=== PATIENT | male | born 1955 | race Caucasian/White ===

== ENCOUNTER → 2022-12-10 | Outpatient (CLI) | payer OTHER ==
--- NOTE | 2022-12-10 15:47 | CTL ---
EXAMINATION TYPE: CT Low Dose Lung DATE OF EXAM ORDERED: 12/10/2022 HISTORY: . Lung cancer screening CT DLP: 167.[address] CTDI: 4.3 mGy Automated exposure control for dose reduction was used. SCREENING VISIT: COMPARISON: TECHNIQUE: Low dose computed tomography scan was performed through the chest at 1 mm thick sections a nd reconstructed images in multiple planes at 1 mm and [address] DIAGNOSTIC QUALITY: Satisfactory FINDINGS: Postsurgical change involving the left shoulder. Hypertrophic and degenerative changes of the spine. Remote rib fractures on the right are noted. There is dense coronary artery calcification. Atherosclerotic changes aorta which is of normal size. There is trace of pericardial fluid. No evidence of thoracic aortic aneurysm. No pathologic adenopathy by noncontrast technique. The lungs are clear there is no pleural effusion or pneumothorax. No focal pneumonia. Mild central lo bular emphysematous changes seen. No sizable pulmonary nodules. IMPRESSION: 1. Mild COPD with no sizable pulmonary nodules. 2. Dense coronary artery calcification correlate clinically. CT LUNG RAD AND CT CHEST RECOMMENDATION: Lung-Rad 1 Negative: Continue annual screening with LDCT in 12 months. =
== END | disposition home or self-care (01) ==
LOC: RADCTMAIN 14:40
DX: Z12.2 Encounter for screening for malignant neoplasm of respiratory organs (principal); J44.9 Chronic obstructive pulmonary disease, unspecified; I25.10 Atherosclerotic heart disease of native coronary artery without angina pectoris; F17.210 Nicotine dependence, cigarettes, uncomplicated
CPT/HCPCS: 71271

== ENCOUNTER → 2023-12-14 | Outpatient (CLI) | payer OTHER ==
--- NOTE | 2023-12-14 13:35 | CTL ---
EXAMINATION TYPE: CT Low Dose Lung DATE OF EXAM: 12/14/2023 1:19 PM CLINICAL INDICATION:Male, 68 years old with history of F17.210 nicotine dependence; Hx nicotine deplinda mccauley, current smoker, 1.5 packs per day x 18 years, c/o cough , history of tobacco use. COMPARISON: 12/10/2022 TECHNIQUE: Multiple axial non-contrast scans were obtained from approximately the lung apices through the upper abdomen. Coronal and sagittal reformatted images were obtained. Low dose technique was uti lized. CT DLP: 105 mGycm, Automated exposure control for dose reduction was used. CT Contrast: Contrast used: None Oral contrast used: None FINDINGS: ======== Lack of intravenous contrast and low dose technique limits the evaluation of the vascular and soft ti ssue structures. LUNGS: No evidence of pulmonary fibrosis. No evidence of focal consolidation, pneumothorax or pleural effusion. Mild centrilobular emphysema changes throughout the lungs Nodules: RUL: None. RML: None. RLL: None. VLAD: None. LLL: None. AIRWAY: Patent and unremarkable. HEART: Size within normal limits. Moderate coronary artery atherosclerosis. MEDIASTINUM: No gross evidence of adenopathy. VASCULATURE: No aortic aneurysm. MUSCULOSKELETAL: Mild disc degeneration changes are present throughout the thoracolumbar spine., left shoulder arthroplasty with hardware intact. Subacute chronic right-sided rib fractures with callus f ormation noted. SOFT TISSUES/LYMPH NODES: Unremarkable. LOWER NECK: No significant findings. UPPER ABDOMEN: No significant findings. IMPRESSION: 1. No pulmonary nodules. 2. Mild emphysema. CT LUNG RAD AND CT CHEST RECOMMENDATION: Lung-Rad 1 Negative: Continue annual screening with LDCT in 12 months. S Modifier (other clinically significant findings): None Recommend smoking cessation (if current smoker), or continuation of smoking cessation (if prior smoke r). Annual screening for lung cancer with low-dose computed tomography is recommended in adults ages 55 to 77 years who have a 30 pack-year smoking history and currently smoke or have quit within the pa st 15 years. Screening should be discontinued once a person has not smoked for 15 years or develops a health problem that substantially limits life expectancy or the ability or willingness to have curat papi lung surgery. Lung rads 2021 [email or web address]
== END | disposition home or self-care (01) ==
LOC: RADCTMAIN 12:47
DX: Z12.2 Encounter for screening for malignant neoplasm of respiratory organs (principal); J43.2 Centrilobular emphysema; Z87.891 Personal history of nicotine dependence
CPT/HCPCS: 71271

== ENCOUNTER 2024-01-13 15:58 | Emergency (ER) | payer OTHER ==
[2024-01-13 16:32] VITALS: RESP 18
--- NOTE | 2024-01-13 16:40 | ED ---
General Adult HPI - General Chief complaint: Wound/Laceration Stated complaint: Foreign Object stuck in L hand Time Seen by Provider: 01/13/24 16:07 Source: patient, RN notes reviewed Mode of arrival: ambulatory Limitations: no limitations - History of Present Illness Initial comments: 68-year-old male presents to the emergency department for evaluation of fishhook in the left middle finger. Patient states that this morning he was fishing when a fishhook got stuck in his finger. He states that he attempted to get it out but was unsuccessful. He states that there is a small portion of the hook that is still within his finger. He is unsure of his last tetanus vaccination date. - Related Data Home Medications Medication Instructions Recorded Confirmed Aspirin EC [Ecotrin] 325 mg PO DAILY 07/17/14 07/18/14 HYDROcodone/APAP 10-325MG [[place] 1 each PO Q8HR PRN 07/17/14 07/18/14 10-325] Multivitamins, Thera [Multivitamin 1 each PO DAILY 07/17/14 07/18/14 (formulary)] traMADol HCl [Ultram] 50 mg PO Q6H PRN 07/17/14 07/18/14 Previous Rx's Medication Instructions Recorded Atorvastatin [Lipitor] 40 mg PO DAILY #90 tab 07/19/14 Metoprolol Tartrate [Lopressor] 25 mg PO BID #180 tab 07/19/14 Nicotine 21Mg/24Hr Patch [Habitrol] 1 patch TRANSDERM DAILY #14 patch 07/19/14 Nitroglycerin Sl Tabs [Nitrostat] 0.4 mg SUBLINGUAL Q5M PRN #25 tab 07/19/14 Cephalexin [Keflex] 500 mg PO Q6HR #28 cap 01/13/24 Allergies Allergy/AdvReac Type Severity Reaction Status Date / Time No Known Allergies Allergy Verified 01/13/24 16:04 Review of Systems ROS Statement: Those systems with pertinent positive or pertinent negative responses have been documented in the HPI. ROS Other: All systems not noted in ROS Statement are negative. Past Medical History Past Medical History: Cancer, Chest Pain / Angina, Hyperlipidemia Additional Past Medical History / Comment(s): HX OF PROSTATE CANCER (TX WITH RADIATION SEED IMPLANTS), BACK PAIN, LEFT SHOULDER PAIN AND HEEL PAIN. RECENT CHEST DISCOMFORT. History of Any Multi-Drug Resistant Organisms: None Reported Past Surgical History: Joint Replacement, Orthopedic Surgery Additional Past Surgical History / Comment(s): RT SHOULDER ROTATOR CUFF, RT KNEE REPLACEMENT Past Anesthesia/Blood Transfusion Reactions: No Reported Reaction, Family History of Problems w/ Anesthesia Additional Past Anesthesia/Blood Transfusion Reaction / Comment(s): SISTER (Mirna)-HIVWILLIAM Past Psychological History: No Psychological Hx Reported Past Alcohol Use History: None Reported Past Drug Use History: Marijuana - Past Family History Father Family Medical History: Cancer, Coronary Artery Disease (CAD) Additional Family Medical History / Comment(s): prostate and COLON CANCER, triple CABG, General Exam Limitations: no limitations General appearance: alert, in no apparent distress Head exam: Present: atraumatic, normocephalic, normal inspection Extremities exam: Present: normal inspection, full ROM, normal capillary refill. Absent: tenderness, pedal edema, joint swelling, calf tenderness Neurological exam: Present: alert, oriented X3 Psychiatric exam: Present: normal affect, normal mood Skin exam: Present: warm, dry, normal color, other (Visible foreign body to the distal left middle finger). Absent: intact Course Vital Signs 01/13/24 16:03 Temperature 97.8 F Pulse Rate 103 H Respiratory 18 Rate Blood Pressure 142/87 O2 Sat by Pulse 96 Oximetry Procedures - Forgein Body Removal Soft Tissue Consent Obtained: verbal consent Site: hand Anesthetic Used: lidocaine 1% Foreign Body Suspected: Fish Hook Foreign Body Removed: yes Patient Tolerated Procedure: well, no complications Medical Decision Making - Medical Decision Making Was pt. sent in by a medical professional or institution ([facility], WORKERS COMPENSATION ATTORNEY, urgent care, hospital, or long term...) When possible be specific @ -No Did you speak to anyone other than the patient for history (EMS, parent, family, police, friend...)? What history was obtained from this source @ -No Did you review nursing and triage notes (agree or disagree)? Why? @ -I reviewed and agree with nursing and triage notes Were old charts reviewed (outside hosp., previous admission, EMS record, old EKG, old radiological studies, urgent care reports/EKG's, long term records)? Report findings @ -No old charts were reviewed Differential Diagnosis (chest pain, altered mental status, abdominal pain women, abdominal pain men, vaginal bleeding, weakness, fever, dyspnea, syncope, headache, dizziness, GI bleed, back pain, seizure, CVA, palpatations, mental health, musculoskeletal)? @ -Soft tissue foreign body, cellulitis, this list is not all inclusive EKG interpreted by me (3pts min.). @ -None X-rays interpreted by me (1pt min.). @ -None done CT interpreted by me (1pt min.). @ -None done U/S interpreted by me (1pt. min.). @ -None done What testing was considered but not performed or refused? (CT, X-rays, U/S, labs)? Why? @ -None What meds were considered but not given or refused? Why? @ -None Did you discuss the management of the patient with other professionals (professionals i.e. , PA, WORKERS COMPENSATION ATTORNEY, lab, RT, psych nurse, perinatal social worker, pocketed spring assembler, teacher, soil science technical officer, machine adjuster leader case trim)? Give summary @ -No Was smoking cessation discussed for >3mins.? @ -No Was critical care preformed (if so, how long)? @ -No Were there social determinants of health that impacted care today? How? (Homelessness, low income, unemployed, alcoholism, drug addiction, transportation, low edu. Level, literacy, decrease access to med. care, long-term, rehab)? @ -No Was there de-escalation of care discussed even if they declined (Discuss DNR or withdrawal of care, Hospice)? DNR status @ -No What co-morbidities impacted this encounter? (DM, HTN, Smoking, COPD, CAD, Cancer, CVA, ARF, Chemo, Hep., AIDS, mental health diagnosis, sleep apnea, morbid obesity)? @ -None Was patient admitted / discharged? Hospital course, mention meds given and route, prescriptions, significant lab abnormalities, going to OR and other pertinent info. @ -Discharged. Patient presented to ED for foreign body in left middle finger. Patient attempted removal at home. Area was numbed with lidocaine and foreign body removed. Patient was updated on his tetanus vaccination. Advised to lookout for signs of infection. Patient understanding and agreeable with plan. Patient stable at time of discharge. Case discussed with Dr. Rubio Undiagnosed new problem with uncertain prognosis? @ -No Drug Therapy requiring intensive monitoring for toxicity (Heparin, Nitro, Insul in, Cardizem)? @ -No Were any procedures done? @ -Soft tissue foreign body removal Diagnosis/symptom? @ -Soft tissue foreign body Acute, or Chronic, or Acute on Chronic? @ -Acute Uncomplicated (without systemic symptoms) or Complicated (systemic symptoms)? @ -Uncomplicated Side effects of treatment? @ -No Exacerbation, Progression, or Severe Exacerbation? @ -No Poses a threat to life or bodily function? How? (Chest pain, [place], [place], pneumonia, PE, COPD, DKA, ARF, appy, cholecystitis, CVA, Diverticulitis, Homicidal, Suicidal, threat to staff... 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 Return to the emergency department for new or worsening symptoms. Prescriptions: Cephalexin [Keflex] 500 mg PO Q6HR #28 cap Is patient prescribed a controlled substance at d/c from ED?: No Referrals: Linwood Mao DO [Primary Care Provider] - 1-2 days
[2024-01-13] MEDS: DIPH,PERTUS(ACELL)TETVAC-LF 0.5 ML VIAL IM ONE (16:43)
[2024-01-13] MEDS: LIDOCAINE 1% INJ 10MG/ML (20 ML MDV) SQ ONE (16:43)
[2024-01-13 18:03] VITALS: BP 139/79; PULSE 98; TEMP 97.9
== END 2024-01-13 17:35 | disposition home or self-care (01) ==
LOC: EC 15:58
DX: S60.453A Superficial foreign body of left middle finger, initial encounter (principal); Z23 Encounter for immunization; W26.8XXA Contact with other sharp object(s), not elsewhere classified, initial encounter
CPT/HCPCS: 90715; 99282; 90471; 10120; J2001

== ENCOUNTER 2024-01-31 15:11 | Emergency (ER) | payer OTHER ==
[2024-01-31 15:32] VITALS: RESP 18
--- NOTE | 2024-01-31 15:50 | ED ---
Extremity Problem HPI - General Chief complaint: Extremity Problem,Nontraumatic Stated complaint: R foot injury, infection, sent by for IV Time Seen by Provider: 01/31/24 15:37 Source: patient Mode of arrival: ambulatory - History of Present Illness Initial comments: 68-year-old male presenting with chief complaint of wound to the right foot. Patient states that few days ago he was doing yard work. He does not recall exactly how he got this wound, but now there is an ulceration to the right second toe plantar surface. He first noticed the wound 3 days ago. He does have neuropathy. He states he is "borderline diabetic". Area is sore and he has some redness to his foot and lower leg. No fevers. Patient was seen at his PCPs office today and sent to the ER for further evaluation. - Related Data Home Medications Medication Instructions Recorded Confirmed Aspirin EC [Ecotrin] 325 mg PO DAILY 07/17/14 07/18/14 HYDROcodone/APAP 10-325MG [[place] 1 each PO Q8HR PRN 07/17/14 07/18/14 10-325] Multivitamins, Thera [Multivitamin 1 each PO DAILY 07/17/14 07/18/14 (formulary)] traMADol HCl [Ultram] 50 mg PO Q6H PRN 07/17/14 07/18/14 Previous Rx's Medication Instructions Recorded Atorvastatin [Lipitor] 40 mg PO DAILY #90 tab 07/19/14 Metoprolol Tartrate [Lopressor] 25 mg PO BID #180 tab 07/19/14 Nicotine 21Mg/24Hr Patch [Habitrol] 1 patch TRANSDERM DAILY #14 patch 07/19/14 Nitroglycerin Sl Tabs [Nitrostat] 0.4 mg SUBLINGUAL Q5M PRN #25 tab 07/19/14 Cephalexin [Keflex] 500 mg PO Q6HR #28 cap 01/13/24 Cephalexin [Keflex] 500 mg PO Q6HR 7 Days #28 cap 01/31/24 Sulfamethox-Tmp 800-160Mg [Bactrim 1 tab PO Q12HR 7 Days #14 tab 01/31/24 DS 800-160 mg] Allergies Allergy/AdvReac Type Severity Reaction Status Date / Time No Known Allergies Allergy Verified 01/31/24 15:32 Review of Systems ROS Statement: Those systems with pertinent positive or pertinent negative responses have been documented in the HPI. ROS Other: All systems not noted in ROS Statement are negative. Past Medical History Past Medical History: Cancer, Chest Pain / Angina, Hyperlipidemia Additional Past Medical History / Comment(s): HX OF PROSTATE CANCER (TX WITH RADIATION SEED IMPLANTS), BACK PAIN History of Any Multi-Drug Resistant Organisms: None Reported Past Surgical History: Joint Replacement, Orthopedic Surgery Additional Past Surgical History / Comment(s): RT SHOULDER ROTATOR CUFF, RT KNEE REPLACEMENT. Lt shoulder Past Anesthesia/Blood Transfusion Reactions: No Reported Reaction, Family History of Problems w/ Anesthesia Additional Past Anesthesia/Blood Transfusion Reaction / Comment(s): SISTER (Mirna)-JIMMY Past Psychological History: No Psychological Hx Reported Smoking Status: Current every day smoker Past Alcohol Use History: None Reported Past Drug Use History: Marijuana - Past Family History Father Family Medical History: Cancer, Coronary Artery Disease (CAD) Additional Family Medical History / Comment(s): prostate and COLON CANCER, triple CABG, General Exam Limitations: no limitations General appearance: alert, in no apparent distress Head exam: Present: atraumatic, normocephalic Eye exam: Present: normal appearance, EOMI Neck exam: Present: normal inspection. Absent: meningismus Respiratory exam: Absent: respiratory distress Cardiovascular Exam: Present: regular rate Right Foot/Toe exam: Present: erythema (Ulceration deformity to the second toe) Neurological exam: Present: alert, oriented X3 Psychiatric exam: Present: normal affect, normal mood Course Vital Signs 01/31/24 15:25 Temperature 98.2 F Pulse Rate 89 Respiratory 18 Rate Blood Pressure 136/78 O2 Sat by Pulse 97 Oximetry Medical Decision Making - Medical Decision Making Was pt. sent in by a medical professional or institution (, PA, ACCOUNTS PAYABLE REPRESENTATIVE, urgent care, hospital, or half-way...) When possible be specific @ -PCP Did you speak to anyone other than the patient for history (EMS, parent, family, police, friend...)? What history was obtained from this source @ -No Did you review nursing and triage notes (agree or disagree)? Why? @ -I reviewed and agree with nursing and triage notes Were old charts reviewed (outside hosp., previous admission, EMS record, old EKG, old radiological studies, urgent care reports/EKG's, half-way records)? Report findings @ -No old charts were reviewed Differential Diagnosis (chest pain, altered mental status, abdominal pain women, abdominal pain men, vaginal bleeding, weakness, fever, dyspnea, syncope, headache, dizziness, GI bleed, back pain, seizure, CVA, palpatations, mental health, musculoskeletal)? @ -Differential Musculoskeletal Muscular strain, contusion, ligament sprain, fracture, arthritis, septic arthritis, bursitis, cellulitis, muscle spasm, nerve compression, DVT, arterial occlusion, herpes zoster, electrolyte abnormality, tumor.... This is not meant to be in all inclusive list EKG interpreted by me (3pts min.). @ -As above X-rays interpreted by me (1pt min.). @ -X-ray shows small soft tissue noted of the right second toe. There is no e vidence for bony destructive process to suggest osteomyelitis or foreign body. Osseous structures are intact. CT interpreted by me (1pt min.). @ -None done U/S interpreted by me (1pt. min.). @ -None done What testing was considered but not performed or refused? (CT, X-rays, U/S, labs)? Why? @ -None What meds were considered but not given or refused? Why? @ -None Did you discuss the management of the patient with other professionals (professionals i.e. , PA, ACCOUNTS PAYABLE REPRESENTATIVE, lab, RT, psych nurse, social service liaison, supervisor cutting department, teacher, chairman & chief executive officer, medical case worker)? Give summary @ -No Was smoking cessation discussed for >3mins.? @ -No Was critical care preformed (if so, how long)? @ -No Were there social determinants of health that impacted care today? How? (Homelessness, low income, unemployed, alcoholism, drug addiction, transportation, low edu. Level, literacy, decrease access to med. care, retirement, rehab)? @ -No Was there de-escalation of care discussed even if they declined (Discuss DNR or withdrawal of care, Hospice)? DNR status @ -No What co-morbidities impacted this encounter? (DM, HTN, Smoking, COPD, CAD, Cancer, CVA, ARF, Chemo, Hep., AIDS, mental health diagnosis, sleep apnea, morbi d obesity)? @ -None Was patient admitted / discharged? Hospital course, mention meds given and rout e, prescriptions, significant lab abnormalities, going to OR and other pertinent info. @ -68-year-old male presenting with chief complaint of ulceration to the right second toe. On exam there is some redness to the toe. Patient has neuropathy. No fevers. No red streaking. X-ray shows no evidence of osteomyelitis and patient's white count is WNL. He is nontoxic-appearing and vitals are stable. Patient is given 1 dose of Kefzol 2 g here in the ER. He will be started on Keflex and Bactrim as an outpatient. Line is drawn around the redness of his toe, instructed to report back for reevaluation should the redness extend beyond this line. Educated on wound care. Discharged home. Follow-up with PCP. Report back to ER with any new or worsening symptoms. Discussed return parameters and answered all questions. Patient conveyed verbal understanding and agreed to the plan. I discussed this case in detail with my attending Dr. High Undiagnosed new problem with uncertain prognosis? @ -No Drug Therapy requiring intensive monitoring for toxicity (Heparin, Nitro, Insulin, Cardizem)? @ -No Were any procedures done? @ -No Diagnosis/symptom? @ -Cellulitis Acute, or Chronic, or Acute on Chronic? @ -Acute Uncomplicated (without systemic symptoms) or Complicated (systemic symptoms)? @ -Uncomplicated Side effects of treatment? @ -No Exacerbation, Progression, or Severe Exacerbation? @ -No Poses a threat to life or bodily function? How? (Chest pain, [place], [place], pneumonia, PE, COPD, DKA, ARF, appy, cholecystitis, CVA, Diverticulitis, Homicidal, Suicidal, threat to staff... and all critical care pts) @ -Low likelihood at this time - Lab Data Result diagrams: 01/31/24 15:52 01/31/24 15:52 Lab Results 01/31/24 01/31/24 01/31/24 Range/Units 15:52 15:52 15:52 WBC 7.3 (3.8-10.6) k/uL RBC 4.96 (4.30-5.90) m/uL Hgb 15.0 (13.0-17.5) gm/dL Hct 46.8 (39.0-53.0) % MCV 94.3 (80.0-100.0) fL MCH 30.2 (25.0-35.0) pg MCHC 32.0 (31.0-37.0) g/dL RDW 14.0 (11.5-15.5) % Plt Count 261 (150-450) k/uL MPV 7.3 Neutrophils % 59 % Lymphocytes % 29 % Monocytes % 7 % Eosinophils % 3 % Basophils % 1 % Neutrophils # 4.3 (1.3-7.7) k/uL Lymphocytes # 2.1 (1.0-4.8) k/uL Monocytes # 0.5 (0-1.0) k/uL Eosinophils # 0.2 (0-0.7) k/uL Basophils # 0.1 (0-0.2) k/uL Sodium 138 (137-145) mmol/L Potassium 3.9 (3.5-5.1) mmol/L Chloride 108 H (98-107) mmol/L Carbon Dioxide 26 (22-30) mmol/L Anion Gap 4 mmol/L BUN 9 (9-20) mg/dL Creatinine 0.66 (0.66-1.25) mg/dL Est GFR (CKD-EPI)AfAm >90 (>60 ml/min/1.73 sqM) Est GFR (CKD-EPI)NonAf >90 (>60 ml/min/1.73 sqM) Glucose 94 (74-99) mg/dL Plasma Lactic Acid Matthew 1.1 (0.7-2.0) mmol/L Calcium 8.8 (8.4-10.2) mg/dL Total Bilirubin 0.6 (0.2-1.3) mg/dL AST 39 (17-59) U/L ALT 32 (4-49) U/L Alkaline Phosphatase 75 (38-126) U/L Total Protein 6.3 (6.3-8.2) g/dL Albumin 3.8 (3.5-5.0) g/dL Disposition Clinical Impression: Cellulitis Disposition: HOME SELF-CARE Condition: Good Instructions (If sedation given, give patient instructions): Cellulitis (ED) Additional Instructions: Follow up with PCP. Report back to ER with any new or worsening symptoms. Take medication as prescribed Prescriptions: Sulfamethox-Tmp 800-160Mg [Bactrim DS 800-160 mg] 1 tab PO Q12HR 7 Days #14 tab Cephalexin [Keflex] 500 mg PO Q6HR 7 Days #28 cap Is patient prescribed a controlled substance at d/c from ED?: No Referrals: Linwood Mao DO [Primary Care Provider] - 1-2 days Time of Disposition: 16:56
[2024-01-31 16:07] LABS: Basophils # (A) 0.1 k/uL (0-0.2); Basophils % (A) 1 %; Eosinophils # (A) 0.2 k/uL (0-0.7); Eosinophils % (A) 3 %; HCT 46.8 % (39.0-53.0); Lymphocytes # (A) 2.1 k/uL (1.0-4.8); Lymphocytes % (A) 29 %; MCH 30.2 pg (25.0-35.0); MCV 94.3 fL (80.0-100.0); Mean Platelet Volume 7.3; Monocytes # (A) 0.5 k/uL (0-1.0); Monocytes % (A) 7 %; Neutrophils # (A) 4.3 k/uL (1.3-7.7); Neutrophils % (A) 59 %; Platelet Count 261 k/uL (150-450); RBC 4.96 m/uL (4.30-5.90); WBC 7.3 k/uL (3.8-10.6)
[2024-01-31 16:17] LABS: ALT 32 U/L (4-49); AST 39 U/L (17-59); African American GFR (CKD) >90 (>60 ml/min/1.73 sqM); Albumin 3.8 g/dL (3.5-5.0); Alkaline Phosphatase 75 U/L (38-126); Anion Gap 4 mmol/L; Blood Urea Nitrogen 9 mg/dL (9-20); Calcium 8.8 mg/dL (8.4-10.2); Carbon Dioxide 26 mmol/L (22-30); Chloride 108 mmol/L (98-107); Glucose 94 mg/dL (74-99); Non-African American GFR(CKD) >90 (>60 ml/min/1.73 sqM); Potassium 3.9 mmol/L (3.5-5.1); Sodium 138 mmol/L (137-145); Total Bilirubin 0.6 mg/dL (0.2-1.3); Total Protein 6.3 g/dL (6.3-8.2)
--- NOTE | 2024-01-31 16:23 | XR ---
EXAMINATION TYPE: XR toes RT DATE OF EXAM: 01/31/2024 COMPARISON: NONE HISTORY: Wound TECHNIQUE: 3 views right second toe FINDINGS: Small soft tissue noted of the right second toe. There is no evidence for bony destructive process to suggest osteomyelitis or foreign body. Osseous structures are intact. IMPRESSION: As above
[2024-01-31 17:48] VITALS: BP 126/80; PULSE 80; TEMP 98.1
== END 2024-01-31 17:58 | disposition home or self-care (01) ==
LOC: EC 15:11
DX: L03.031 Cellulitis of right toe (principal); F17.200 Nicotine dependence, unspecified, uncomplicated
CPT/HCPCS: 36415; 80053; 83605; 85025; 73660; 99283; 96365; J0690

== ENCOUNTER 2024-06-20 07:08 | Emergency (ER) | payer MEDICARE ==
--- NOTE | 2024-06-20 07:33 | ED ---
General Adult HPI - General Chief complaint: Urogenital Stated complaint: Urine Retention Time Seen by Provider: 06/20/24 07:14 Source: patient, RN notes reviewed Mode of arrival: ambulatory Limitations: no limitations - History of Present Illness Initial comments: Patient is a 68-year-old male presenting to the emergency department with concerns for urinary retention. Onset of symptoms was close to a week ago. Patient did have a spot removed from his bladder the week prior. Patient was having symptoms while in [place] and they did a urine sample and put him on antibiotics. Patient has had increased retention the past few days. Patient has fullness sensation. No fever. No vomiting. - Related Data Home Medications Medication Instructions Recorded Confirmed Aspirin EC [Ecotrin] 325 mg PO DAILY 07/17/14 03/17/24 Multivitamins, Thera [Multivitamin 1 each PO DAILY 07/17/14 03/17/24 (formulary)] Atorvastatin [Lipitor] 20 mg PO HS 03/15/24 03/17/24 Gabapentin 300 mg PO QID 03/15/24 03/17/24 Previous Rx's Medication Instructions Recorded Nitroglycerin Sl Tabs [Nitrostat] 0.4 mg SUBLINGUAL Q5M PRN #25 tab 07/19/14 Allergies Allergy/AdvReac Type Severity Reaction Status Date / Time No Known Allergies Allergy Verified 06/20/24 07:09 Review of Systems ROS Statement: Those systems with pertinent positive or pertinent negative responses have been documented in the HPI. ROS Other: All systems not noted in ROS Statement are negative. Constitutional: Denies: fever Eyes: Denies: eye pain ENT: Denies: ear pain Respiratory: Denies: cough Cardiovascular: Denies: chest pain Endocrine: Denies: fatigue Gastrointestinal: Denies: abdominal pain Genitourinary: Reports: as per HPI (Retention with overflow incontinence) Musculoskeletal: Denies: back pain Skin: Denies: rash Neurological: Denies: weakness Past Medical History Past Medical History: Cancer, Chest Pain / Angina, Hyperlipidemia Additional Past Medical History / Comment(s): HX OF PROSTATE CANCER (TX WITH RADIATION SEED IMPLANTS), BACK PAIN, tinnitus History of Any Multi-Drug Resistant Organisms: None Reported Past Surgical History: Joint Replacement, Orthopedic Surgery Additional Past Surgical History / Comment(s): RT SHOULDER ROTATOR CUFF, RT KNEE REPLACEMENT, colonoscopy. Lt shoulder Past Anesthesia/Blood Transfusion Reactions: No Reported Reaction, Family History of Problems w/ Anesthesia Additional Past Anesthesia/Blood Transfusion Reaction / Comment(s): SISTER (Mirna)-HIVES. no blood transfusion Past Psychological History: No Psychological Hx Reported Smoking Status: Current every day smoker - Past Family History Father Family Medical History: Cancer, Coronary Artery Disease (CAD) Additional Family Medical History / Comment(s): prostate and COLON CANCER, triple CABG, General Exam Limitations: no limitations General appearance: alert, in no apparent distress Head exam: Present: normocephalic Eye exam: Present: normal appearance Neck exam: Present: normal inspection Respiratory exam: Present: normal lung sounds bilaterally Cardiovascular Exam: Present: regular rate, normal rhythm GI/Abdominal exam: Present: soft. Absent: tenderness exam: Present: normal inspection. Absent: scrotal swelling Extremities exam: Present: normal inspection Neurological exam: Present: alert Psychiatric exam: Present: normal affect, normal mood Skin exam: Present: normal color Course Vital Signs 06/20/24 07:09 Temperature 97.6 F Pulse Rate 116 H Respiratory 22 Rate Blood Pressure 166/93 O2 Sat by Pulse 95 Oximetry Medical Decision Making - Medical Decision Making Was pt. sent in by a medical professional or institution (, PA, PLEASURE CRAFT SAILOR, urgent care, hospital, or custodial...) When possible be specific @ -No Did you speak to anyone other than the patient for history (EMS, parent, family, police, friend...)? What history was obtained from this source @ - is present helps provide history of patient's previous urological procedures Did you review nursing and triage notes (agree or disagree)? Why? @ -I reviewed and agree with nursing and triage notes Were old charts reviewed (outside hosp., previous admission, EMS record, old EKG, old radiological studies, urgent care reports/EKG's, custodial records)? Report findings @ -No old charts were reviewed Differential Diagnosis (chest pain, altered mental status, abdominal pain women, abdominal pain men, vaginal bleeding, weakness, fever, dyspnea, syncope, headache, dizziness, GI bleed, back pain, seizure, CVA, palpatations, mental health, musculoskeletal)? @ -Differential Abdominal Pain Men: Appendicitis, cholecystitis, diverticulosis, ischemic bowel, pancreatitis, hepatitis, UTI, gastroenteritis, AAA, incarcerated hernia, bowel obstruction, constipation, inflammatory bowel, hepatitis, peptic ulcer disease, splenic infarction, perforated viscus, testicular torsion, this is not meant to be an all-inclusive list EKG interpreted by me (3pts min.). @ -As above X-rays interpreted by me (1pt min.). @ -None done CT interpreted by me (1pt min.). @ -None done U/S interpreted by me (1pt. min.). @ -None done What testing was considered but not performed or refused? (CT, X-rays, U/S, labs)? Why? @ -Considered lab work and imaging however resolution of symptoms with Rodriguez catheter placement What meds were considered but not given or refused? Why? @ -None Did you discuss the management of the patient with other professionals (professionals i.e. , PA, PLEASURE CRAFT SAILOR, lab, RT, psych nurse, social worker delinquency prevention, molded goods inspector trimmer, teacher, corporate security officer, cyanide case hardener)? Give summary @ -No Was smoking cessation discussed for >3mins.? @ -No Was critical care preformed (if so, how long)? @ -No Were there social determinants of health that impacted care today? How? (Homelessness, low income, unemployed, alcoholism, drug addiction, transportation, low edu. Level, literacy, decrease access to med. care, prison, rehab)? @ -No Was there de-escalation of care discussed even if they declined (Discuss DNR or withdrawal of care, Hospice)? DNR status @ -No What co-morbidities impacted this encounter? (DM, HTN, Smoking, COPD, CAD, Cancer, CVA, ARF, Chemo, Hep., AIDS, mental health diagnosis, sleep apnea, morbid obesity)? @ -History of previous prostate cancer with radiation as well as previous spot removed from his bladder recently. Was patient admitted / discharged? Hospital course, mention meds given and route, prescriptions, significant lab abnormalities, going to OR and other pertinent info. @ -Patient presents with urinary retention resolved with Rodriguez catheter placement. Patient has had 1 L output. Patient symptom-free. Patient and family updated and need for follow-up and patient states he has an appointment next week with his urologist Undiagnosed new problem with uncertain prognosis? @ -No Drug Therapy requiring intensive monitoring for toxicity (Heparin, Nitro, Insulin, Cardizem)? @ -No Were any procedures done? @ -No Diagnosis/symptom? @ -Urinary retention Acute, or Chronic, or Acute on Chronic? @ -Acute Uncomplicated (without systemic symptoms) or Complicated (systemic symptoms)? @ -Default Side effects of treatment? @ -No Exacerbation, Progression, or Severe Exacerbation? @ -No Poses a threat to life or bodily function? How? (Chest pain, [place], [place], pneumonia, PE, COPD, DKA, ARF, appy, cholecystitis, CVA, Diverticulitis, Homicidal, Suicidal, threat to staff... and all critical care pts) @ -Threat to urological function Disposition Clinical Impression: Urinary retention Disposition: HOME SELF-CARE Condition: Stable Instructions (If sedation given, give patient instructions): Urinary Retention in Men (ED) Additional Instructions: Please follow-up with your urologist next week as planned, call today to inform them of your visit. Return for pain, fever, decreased urinary output, worsening or changing symptoms or any other concerns. Is patient prescribed a controlled substance at d/c from ED?: No Referrals: Linwood Mao DO [Primary Care Provider] - 1-2 days Time of Disposition: 08:07
[2024-06-20 08:30] VITALS: BP 149/85; PULSE 95; RESP 18; TEMP 98
== END 2024-06-20 08:27 | disposition home or self-care (01) ==
LOC: EC 07:08
DX: R33.9 Retention of urine, unspecified (principal); F17.200 Nicotine dependence, unspecified, uncomplicated
CPT/HCPCS: 99283

== ENCOUNTER → 2024-12-18 | Outpatient (CLI) | payer OTHER ==
--- NOTE | 2024-12-19 10:46 | CTL ---
EXAMINATION TYPE: CT Low Dose Lung DATE OF EXAM: 12/18/2024 1:47 PM COMPARISON: None. SCREENING VISIT: Subsequent CT DIAGNOSTIC QUALITY: Limited, but interpretable CLINICAL INDICATION: Male, 69 years old with history of Z122 ENCNTR SCREEN FOR MALIGNANT NEOPLASM OF RESPI, personal tobacco use, Lung cancer screening, History of tobacco use. TECHNIQUE: Low dose computed tomography scan was performed through the chest at 1 mm thick sections a nd reconstructed images in the coronal plane at 1 mm thick sections. Contrast used: mL of , (none if empty) Oral contrast used: (none if empty) CT DLP: 93 mGycm, Automated exposure control for dose reduction was used. CT CTDI: 2.6 mGy, Automated exposure control for dose reduction was used. FINDINGS: LUNG NODULES: Present, detailed below: 1. There is a 0.5 cm triangular density along the anterolateral left mid lung periphery. Series 4 chava ge 170. This is present previously. LUNGS: COPD: Severity: None Fibrosis: Severity: None Lymph nodes: No enlarged mediastinal or hilar adenopathy. There is a 0.9 cm pretracheal lymph node pr esent, present previously slightly diminished in size. Other findings: None RIGHT PLEURAL SPACE: Effusion: None Calcification: None Thickening: None Pneumothorax: None LEFT PLEURAL SPACE: Effusion: None Calcification: None Thickening: None Pneumothorax: None HEART: Other: Ascending thoracic aorta at the level the main pulmonary artery measures 4.0 cm. The main pul monary artery at the bifurcation measures 3.0 cm. Heart Size: Normal Coronary calcification: No significant coronary artery calcifications. Pericardial effusion: None OTHER FINDINGS: Upper abdomen: Normal Bony thorax: Normal Supraclavicular region: Normal IMPRESSION: 1. No suspicious acute changes to suggest neoplasm. 2. Ascending thoracic aortic aneurysm 4.[address] CHEST RECOMMENDATION: Follow-up low-dose CT chest one year CT LUNG RAD: Lung-Rad 2 Benign Appearance or Behavior. [facility], , 12/19/2024 10:44 AM
== END | disposition home or self-care (01) ==
LOC: RADCTMAIN 13:02
PROVIDERS: ATTEND Family Medicine
DX: Z12.2 Encounter for screening for malignant neoplasm of respiratory organs (principal); F17.210 Nicotine dependence, cigarettes, uncomplicated; I71.21 Aneurysm of the ascending aorta, without rupture
CPT/HCPCS: 71271